=== PATIENT | female | born 1960 | race Caucasian/White ===

== ENCOUNTER 2020-12-09 16:25 | Emergency (ER) | payer BC, OTHER ==
[~2020-12-09] VITALS: Ht 167.4 cm; Wt 76.3 kg
--- NOTE | 2020-12-09 16:49 | ED General ---
General Chief Complaint: Neurological Problems Stated Complaint: R SIDE FACIAL NUMBNESS/BLURRED VISION Source of Information: Patient Exam Limitations: No Limitations (MANFRDE HUSSEIN MD) History of Present Illness Date Seen by Provider: Dec 09, 2020 Time Seen by Provider: 16:30 Initial Comments Patient is a 60-year-old who presents to the emergency department today with a chief complaint of right sided facial "tingling" and "numbness". She states it started around her right eye only yesterday afternoon as well as the onset of a dull frontal headache. Patient states that today about 30 to 45 minutes prior to arrival in the emergency department the tingling became more "intense" and seems to move down the right side of her face. Patient also states yesterday she noticed that her right eye became "bloodshot". She states that she went to the eye doctor today and he checked her pressures and her vision and made recommendations that she get a CAT scan. She states she went home and laid down and when she woke up she noticed the intensity of the "numbness" and decided to come to the emergency department here. She states that yesterday she had felt a little bit off balance but not quite dizzy. She denies any unilateral extremity numbness weakness or tingling. She has a negative past medical history past surgical history and does not take any medications. Patient has a family history of her father dying at age 45 from an acute [address]. Patient denies any recent illnesses. All other review of systems reviewed and negative except as stated above. Timing/Duration: 1/2 Hour Severity: Mild Associated Systoms: Denies Symptoms (MANFRED HUSSEIN MD) Allergies and Home Medications Allergies Coded Allergies: No Known Drug Allergies (Unverified , 12/09/20) Patient Home Medication List Home Medication List Reviewed: Yes (MANFRED HUSSEIN MD) Review of Systems Review of Systems Constitutional: see HPI EENTM: no symptoms reported Respiratory: no symptoms reported Cardiovascular: no symptoms reported Gastrointestinal: no symptoms reported Genitourinary: no symptoms reported Musculoskeletal: no symptoms reported Skin: no symptoms reported Psychiatric/Neurological: Paresthesia (right facial paresthesia) (MANFRED HUSSEIN MD) Physical Exam Vital Signs Vital Signs - First Documented 12/09/20 12/09/20 16:27 17:12 Temp 35.8 Pulse 62 Resp 18 B/P (MAP) 170/81 (110) Pulse Ox 97 O2 Delivery Room Air (HANNAH BLUM MD) Vital Signs Capillary Refill : (MANFRED HUSSEIN MD) Height, Weight, BMI Height: '" Weight: lbs. oz. kg; BMI Method: General Appearance: No Apparent Distress, WD/WN HEENT: PERRL/EOMI, TMs Normal, Normal ENT Inspection Neck: Normal Inspection, Non Tender, Supple; No Carotid Bruit Respiratory: Lungs Clear, Normal Breath Sounds, No Accessory Muscle Use Cardiovascular: Regular Rate, Rhythm, No Murmur Gastrointestinal: Non Tender, Soft Extremity: Normal Capillary Refill, Normal Inspection, Normal Range of Motion, No Pedal Edema Neurologic/Psychiatric: Alert, Oriented x3, No Motor/Sensory Deficits, Normal Mood/Affect, endoscopy tech II-XII Norm as Tested; No Motor Weakness; Sensory Deficit (facial paresthesia), Other (normal finger to nose, normal heel to trujillo; negative Romberg) Skin: Normal Color, Warm/Dry (MANFRED HUSSEIN MD) Progress/Results/Core Measures Suspected Sepsis SIRS Temperature: Pulse: Respiratory Rate: Laboratory Tests 12/09/20 16:50: White Blood Count 5.7 Blood Pressure / Mean: Laboratory Tests 12/09/20 16:50: Creatinine 0.78, Platelet Count 220 (MANFRED HUSSEIN MD) Results/Orders Lab Results Laboratory Tests Test 12/09/20 16:49 12/09/20 16:50 Range/Units Glucometer 102 70-110 MG/DL White Blood Count 5.7 4.3-11.0 10^3/uL Red Blood Count 4.35 3.80-5.11 10^6/uL Hemoglobin 13.9 11.5-16.0 g/dL Hematocrit 42 35-52 % Mean Corpuscular Volume 96 80-99 fL Mean Corpuscular Hemoglobin 32 25-34 pg Mean Corpuscular Hemoglobin Concent 33 32-36 g/dL Red Cell Distribution Width 13.5 10.0-14.5 % Platelet Count 220 130-400 10^3/uL Mean Platelet Volume 9.5 9.0-12.2 fL Immature Granulocyte % (Auto) 0 % Neutrophils (%) (Auto) 44 42-75 % Lymphocytes (%) (Auto) 43 12-44 % Monocytes (%) (Auto) 9 0-12 % Eosinophils (%) (Auto) 4 0-10 % Basophils (%) (Auto) 1 0-10 % Neutrophils # (Auto) 2.5 1.8-7.8 10^3/uL Lymphocytes # (Auto) 2.4 1.0-4.0 10^3/uL Monocytes # (Auto) 0.5 0.0-1.0 10^3/uL Eosinophils # (Auto) 0.2 0.0-0.3 10^3/uL Basophils # (Auto) 0.0 0.0-0.1 10^3/uL Immature Granulocyte # (Auto) 0.0 0.0-0.1 10^3/uL Erythrocyte Sedimentation Rate 18 0-30 MM/HR Sodium Level 142 135-145 MMOL/L Potassium Level 4.4 3.6-5.0 MMOL/L Chloride Level 110 H 98-107 MMOL/L Carbon Dioxide Level 19 L 21-32 MMOL/L Anion Gap 13 5-14 MMOL/L Blood Urea Nitrogen 12 7-18 MG/DL Creatinine 0.78 0.60-1.30 MG/DL Estimat Glomerular Filtration Rate > 60 BUN/Creatinine Ratio 15 Glucose Level 100 70-105 MG/DL Calcium Level 8.9 8.5-10.1 MG/DL (HANNAH BLUM MD) My Orders Orders - HANNAH BLUM MD Ct Angio Head/Neck (12/09/20 18:02) Erythrocyte Sedimentation Rate (12/09/20 18:03) Iohexol Injection (Omnipaque 350 Mg/Ml 1 (12/09/20 18:15) Received Contrast (Hold Metformin- Contr (12/09/20 18:15) Sodium Chloride Flush (Catheter Flush Sy (12/09/20 18:15) Ns (Ivpb) (Sodium Chloride 0.9% Ivpb Bag (12/09/20 18:15) (HANNAH BLUM MD) Medications Given in ED Current Medications Medications Dose Ordered Sig/Sena Route Start Time Stop Time Status Last Admin Dose Admin Iohexol 100 ml ONCE ONCE IV 12/09/20 18:15 12/09/20 18:16 DC 12/09/20 18:16 75 ML Sodium Chloride 10 ml NEEDED PRN IV 12/09/20 18:15 12/09/20 18:16 10 ML Sodium Chloride 100 ml ONCE ONCE IV 12/09/20 18:15 12/09/20 18:16 DC 12/09/20 18:16 80 ML (HANNAH BLUM MD) Vital Signs/I&O 12/09/20 12/09/20 16:27 17:12 Temp 35.8 Pulse 62 54 Resp 18 18 B/P (MAP) 170/81 (110) 131/83 (99) Pulse Ox 97 97 O2 Delivery Room Air (HANNAH BLUM MD) Vital Signs/I&O Capillary Refill : (MANFRED HUSSEIN MD) Progress Note : Time: 17:55 Progress Note Patient's head CT noncontrast was unremarkable for any acute intracranial abnormality. Had a long conversation with the patient regarding the need for further studies. I believe strongly that this is a peripheral nerve issue. The patient continues to complain of a little bit of decreased visual acuity in her right eye. Patient states that her acuity was down on ophthalmologic exam earlier today. She still has a very mild headache. And she maintains that she still has some tingling and numbness to the right face. Dr. Cross, chargemaster specialist did question possible intracranial aneurysm. The patient is slightly worried about this as well. We will go ahead and do a CT angio of the brain to rule that out. Patient's vital signs have been much improved her blood pressure is 109 over 50s her heart rate is in the 50s. She continues to have no other peripheral neurological symptoms. Care will be passed to at shift change with CTA pending. (MANFRED HUSSEIN MD) Progress Note : Time: 19:11 Progress Note I assumed care of this patient from Dr. Hussein at shift change. CT angiogram head and neck was viewed by me and report reviewed. No abnormalities were appreciated to account for her symptoms. ESR was also normal. Patient is describing a subtle numbness or paresthesia in the right perioral region. She is having no other significant symptoms at this time. There are no motor palsies of the face. It is possible she is having an early mild White's palsy or shingles. We discussed proactively starting acyclovir which she would like to do. (HANNAH BLUM MD) Diagnostic Imaging Diagonstic Imaging: CT Plain Films/CT/US/NM/MRI: head Comments [facility] [place], [place] NAME: ONELIA DOCKERY [facility] REC#: [id number] PT STATUS: REG ER : 1960 PHYSICIAN: MANFRED HUSSEIN MD ADMIT DATE: 12/09/20/ER Draft Date of Exam:12/09/20 CT HEAD WO PROCEDURE: CT head without contrast. TECHNIQUE: Multiple contiguous axial images were obtained through the brain without the use of intravenous contrast. Auto Exposure Controls were utilized during the CT exam to meet ALARA standards for radiation dose reduction. INDICATION: Right facial paresthesias and blurry vision in the right eye with headache. No prior examinations are available for comparison. FINDINGS: The ventricles and sulci are within normal limits. There is no hydrocephalus or cerebral edema. There is no midline shift or mass effect. There is no intracranial mass, hemorrhage, or extra-axial fluid collection. The visualized paranasal sinuses and mastoid air cells are clear. There are no regional areas of decreased attenuation appreciated to suggest an acute CVA. IMPRESSION: No acute intracranial abnormality. Dictated on workstation # [id number] Dict: 12/09/20 1736 Trans: 12/09/20 1738 [id number] [id number] Interpreted by: LEILANI BOOKER MD Electronically signed by: (MANFRED HUSSEIN MD) Diagonstic Imaging: CT Comments CT angiogram head and neck viewed by me and report reviewed. See report below: NAME: ONELIA DOCKERY [facility] REC#: [id number] PT STATUS: REG ER : 1960 PHYSICIAN: HANNAH BLUM MD ADMIT DATE: 12/09/20/ER Draft Date of Exam:12/09/20 CT ANGIO HEAD/NECK PROCEDURE: CT angiography of the head and CT angiography of the neck with and without contrast. TECHNIQUE: Contiguous noncontrast images were obtained from the skull base through the vertex. After intravenous contrast administration, helical CT angiography of the neck was performed. Source data was reformatted into 3D MIP projections. Delayed post contrast acquisition was also obtained. Auto Exposure Controls were utilized during the CT exam to meet ALARA standards for radiation dose reduction. INDICATION: Facial paresthesias. COMPARISON: CT head from earlier the same day. FINDINGS: CTA neck: No dissection in the aortic arch. Great vessels of the aortic arch are widely patent. The bilateral common carotid arteries are normal. No stenosis of the proximal internal carotid arteries per NASCET criteria. The cervical divisions of the internal carotid arteries are normal. External carotid arteries are patent proximally. Origin of the vertebral arteries are patent. Both vertebral arteries opacify throughout the neck without high-grade stenosis or dissection. The lung apices are clear. Normal variant azygos fissure is noted. Thyroid is normal. No cervical lymphadenopathy. No parotid mass. CTA head: The temporal, cavernous and supraclinoid segments of the distal internal carotid arteries are widely patent without aneurysm. The M1 and M2 divisions of the middle cerebral arteries are patent. No aneurysm associated with the middle cerebral arteries. Anterior cerebral arteries are widely patent and there is no anterior communicating artery aneurysm. Basilar artery is widely patent and there is no aneurysm at its tip. Posterior cerebral arteries have conventional origin and are patent centrally. No posterior communicating artery aneurysm. Dural venous sinuses are widely patent. No pathologic enhancement on postcontrast imaging. IMPRESSION: 1. No intracranial large vessel occlusion or saccular aneurysm. 2. No high-grade stenosis or arterial occlusion in the neck. 3. Dural venous sinuses are patent. Dictated on workstation # [id number] Dict: 12/09/20 1828 Trans: 12/09/20 1853 [facility] [id number] Interpreted by: JULIANNE FAIRCHILD MD (HANNAH BLUM MD) Departure Impression Primary Impression: Facial paresthesia Disposition: 01 HOME, SELF-CARE Condition: Stable Departure-Patient Inst. Decision time for Depature: 19:13 (HANNAH BLUM MD) Patient Instructions: White's Palsy, Paresthesia (DC), Shingles Add. Discharge Instructions: The exact cause of your symptoms is uncertain. It is possible you are developing early White's palsy or shingles. Complete valacyclovir as prescribed. Call with questions or concerns. Follow-up with your primary care provider soon as possible. If you have persistent symptoms you may wish to pursue other studies such as MRI. Return to care promptly if you have worsening symptoms, especially if you develop other neurologic symptoms such as muscle weakness of any part of the body, change in speech, confusion, further changes in vision, etc. All discharge instructions reviewed with patient and/or family. Voiced understanding. Scripts Valacyclovir HCl (Valacyclovir) 1,000 Mg Tablet 1000 MG PO TID, #21 TAB Prov: HANNAH BLUM MD 12/09/20 Copy Copies To 1: AUSTIN BISWAS OD, KATHRYN M MD Dec 09, 2020 16:49 HANNAH BLUM MD Dec 09, 2020 19:08
[2020-12-09 17:09] LABS: BASOPHILS % (AUTO) 1 % (0-10); EOSINOPHILS # (AUTO) 0.2 10^3/uL (0.0-0.3); EOSINOPHILS % (AUTO) 4 % (0-10); HEMATOCRIT 42 % (35-52); HEMOGLOBIN 13.9 g/dL (11.5-16.0); LYMPHOCYTES # (AUTO) 2.4 10^3/uL (1.0-4.0); LYMPHOCYTES % (AUTO) 43 % (12-44); MEAN CORPUSCULAR HEMOGLOBIN 32 pg (25-34); MEAN CORPUSCULAR HGB CONC 33 g/dL (32-36); MEAN CORPUSCULAR VOLUME 96 fL (80-99); MEAN PLATELET VOLUME 9.5 fL (9.0-12.2); MONOCYTES # (AUTO) 0.5 10^3/uL (0.0-1.0); MONOCYTES % (AUTO) 9 % (0-12); NEUTROPHILS # (AUTO) 2.5 10^3/uL (1.8-7.8); NEUTROPHILS % (AUTO) 44 % (42-75); PLATELET COUNT 220 10^3/uL (130-400); WHITE BLOOD COUNT 5.7 10^3/uL (4.3-11.0)
[2020-12-09 17:12] LABS: CHLORIDE 110 MMOL/L (98-107); POTASSIUM 4.4 MMOL/L (3.6-5.0); SODIUM 142 MMOL/L (135-145)
[2020-12-09 17:13] LABS: CALCIUM 8.9 MG/DL (8.5-10.1); GLUCOSE 100 MG/DL (70-105)
[2020-12-09 17:15] LABS: CARBON DIOXIDE 19 MMOL/L (21-32)
[2020-12-09 17:17] LABS: CREATININE SERUM 0.78 MG/DL (0.60-1.30); GFR ESTIMATED > 60
[2020-12-09 17:18] LABS: BUN/CREATININE RATIO 15
--- NOTE | 2020-12-09 17:38 | Diagnostic Imaging Report ---
PROCEDURE: CT head without contrast. TECHNIQUE: Multiple contiguous axial images were obtained through the brain without the use of intravenous contrast. Auto Exposure Controls were utilized during the CT exam to meet ALARA standards for radiation dose reduction. INDICATION: Right facial paresthesias and blurry vision in the right eye with headache. No prior examinations are available for comparison. FINDINGS: The ventricles and sulci are within normal limits. There is no hydrocephalus or cerebral edema. There is no midline shift or mass effect. There is no intracranial mass, hemorrhage, or extra-axial fluid collection. The visualized paranasal sinuses and mastoid air cells are clear. There are no regional areas of decreased attenuation appreciated to suggest an acute CVA. IMPRESSION: No acute intracranial abnormality. Dictated by: Dictated on workstation # [id number]
[2020-12-09] MEDS ORDERED: CATHETER FLUSH 10 ML SYR IV PRN (18:15)
[2020-12-09] MEDS ORDERED: IOHEXOL 350 MG/ML 100 ML (OMNIPAQUE 350) VIAL IV ONE (18:15)
[2020-12-09] MEDS ORDERED: NS 100 ML (IVPB) BAG IV ONE (18:15)
[2020-12-09] MEDS ORDERED: HOLD METFORMIN - RECEIVED CONTRAST 20 ML VIAL IV SCH (18:15)
--- NOTE | 2020-12-09 18:53 | Diagnostic Imaging Report ---
PROCEDURE: CT angiography of the head and CT angiography of the neck with and without contrast. TECHNIQUE: Contiguous noncontrast images were obtained from the skull base through the vertex. After intravenous contrast administration, helical CT angiography of the neck was performed. Source data was reformatted into 3D MIP projections. Delayed post contrast acquisition was also obtained. Auto Exposure Controls were utilized during the CT exam to meet ALARA standards for radiation dose reduction. INDICATION: Facial paresthesias. COMPARISON: CT head from earlier the same day. FINDINGS: CTA neck: No dissection in the aortic arch. Great vessels of the aortic arch are widely patent. The bilateral common carotid arteries are normal. No stenosis of the proximal internal carotid arteries per NASCET criteria. The cervical divisions of the internal carotid arteries are normal. External carotid arteries are patent proximally. Origin of the vertebral arteries are patent. Both vertebral arteries opacify throughout the neck without high-grade stenosis or dissection. The lung apices are clear. Normal variant azygos fissure is noted. Thyroid is normal. No cervical lymphadenopathy. No parotid mass. CTA head: The temporal, cavernous and supraclinoid segments of the distal internal carotid arteries are widely patent without aneurysm. The M1 and M2 divisions of the middle cerebral arteries are patent. No aneurysm associated with the middle cerebral arteries. Anterior cerebral arteries are widely patent and there is no anterior communicating artery aneurysm. Basilar artery is widely patent and there is no aneurysm at its tip. Posterior cerebral arteries have conventional origin and are patent centrally. No posterior communicating artery aneurysm. Dural venous sinuses are widely patent. No pathologic enhancement on postcontrast imaging. IMPRESSION: 1. No intracranial large vessel occlusion or saccular aneurysm. 2. No high-grade stenosis or arterial occlusion in the neck. 3. Dural venous sinuses are patent. Dictated by: Dictated on workstation # [id number]
[2020-12-09] MEDS ORDERED: VALA10007 PO (19:17)
[2020-12-09] MEDS ORDERED: VALACYCLOVIR 500 MG TAB (VALTREX) PO ONE (19:30)
[2020-12-09 19:57] VITALS: BP 129/64
== END 2020-12-09 19:32 | disposition home or self-care (01) ==
LOC: ER 16:28
DX: R20.2 Paresthesia of skin (principal)
CPT/HCPCS: 36415; 70450; 70496; 70498; 80048; 82962; 85025; 85652